=== PATIENT | male | born 1960 | race Caucasian/White ===

== ENCOUNTER 2017-04-21 08:06 | Day surgery (SDC) | payer OTHER, BC ==
[~2017-04-21 08:06] MED LIST: LIDOCAINE HCL 1% MPF SOL ONE; PROPOFOL 500 MG/50 ML EMU IV ONE
[2017-04-21] MEDS ORDERED: ONDANSETRON HCL 4 MG/2 ML SOL ONE (09:50)
[2017-04-21 10:15] VITALS: BP 114/77; PULSE 63; RESP 18; TEMP 97.6; O2SAT 98
== END 2017-04-21 10:40 | disposition home or self-care (01) | DRG 951 ==
LOC: SURG 08:06
PROVIDERS: ATTEND Surgery
DX: Z12.11 Encounter for screening for malignant neoplasm of colon (principal); D12.3 Benign neoplasm of transverse colon; Z86.010 Personal history of colon polyps; K57.30 Diverticulosis of large intestine without perforation or abscess without bleeding
CPT/HCPCS: 99001; J2405; J2001; J2704